=== PATIENT | male | born 1975 | race Caucasian/White ===

== ENCOUNTER 2017-06-02 18:52 | Emergency (ER) | payer SELFPAY ==
[2017-06-02 18:57] VITALS: BP 121/65; PULSE 63; RESP 20; O2SAT 100
[2017-06-02 19:27] VITALS: TEMP 97.9
--- NOTE | 2017-06-02 19:29 | PD ---
HPI Chief Complaint: Injury Time Seen by Provider: 19:20 Travel History International Travel<30 days: No Contact w/Intl Traveler<30days: No Traveled to known affect area: No History of Present Illness HPI 42-year-old [id number] male presents for evaluation of left fourth finger tip amputation. He reports a one hour prior to examination he actually closed the hotel door on his finger. He reports pain, aching, worse with palpation. Last tetanus vaccination one ago. He endorses alcohol use today. No other complaints. PFSH Past Medical History Medical History: Denies Significant Hx Diminished Hearing: No Psychiatric: Yes (BIPOLAR) Past Surgical History Surgical History: No Previous Surgery Social History Alcohol Use: Yes (TODAY) Tobacco Use: No Substance Use: No Allergies-Medications (Allergen,Severity, Reaction): Coded Allergies: codeine (Verified Allergy, Severe, 06/02/17) Reported Meds & Prescriptions Reported Meds & Active Scripts Active Keflex (Cephalexin) 500 Mg Cap 500 Mg PO Q8H Keflex (Cephalexin) 500 Mg Cap 500 Mg PO Q8H 7 Days Zofran (Ondansetron HCl) 4 Mg Tab 4 Mg PO Q6HR PRN Hydrocodone-Acetaminophen 5-325 mg Tab 1 Tab PO Q6H PRN Review of Systems General / Constitutional: No: Fever, Chills Musculoskeletal: Positive: Pain, Other (positive for fingertip amputation) Skin: Positive Other (positive for fingertip amputation, pain) Physical Exam Narrative GENERAL: Well-developed well-nourished male in no acute distress SKIN: Warm and dry. The distal tip of the left fourth finger is amputated just proximal to the nail and distal to the DIP joint. Approximately one centimeter tissue. HEAD: Atraumatic. Normocephalic. EYES: Pupils equal and round. No scleral icterus. No injection or drainage. ENT: No nasal bleeding or discharge. Mucous membranes pink and moist. NECK: Trachea midline. No JVD. CARDIOVASCULAR: Regular rate and rhythm. No murmur appreciated. RESPIRATORY: No accessory muscle use. Clear to auscultation. Breath sounds equal bilaterally. MUSCULOSKELETAL: Skin as noted above. Tender to palpation left distal fourth finger. NEUROLOGICAL: Awake and alert. No obvious cranial nerve deficits. Motor grossly within normal limits. Normal speech. Data Data Last Documented VS Vital Signs Date Time Temp Pulse Resp B/P (MAP) Pulse Ox O2 Delivery O2 Flow Rate FiO2 06/02/17 22:05 06/02/17 21:03 58 18 100 Room Air 06/02/17 19:27 97.9 Orders Orders Finger ([id number]) (06/02/17 ) Cefazolin 2 Gm Premix (Ancef 2 Gm Premix (06/02/17 19:30) Iv Access Insert/Monitor (06/02/17 19:27) Bupivacaine Pf 0.5% Inj (Marcaine Pf 0.5 (06/02/17 20:15) Lidocaine 1% Inj (50 Ml) (Xylocaine 1% I (06/02/17 20:15) Ondansetron Inj (Zofran Inj) (06/02/17 20:30) Sodium Chlor 0.9% 1000 Ml Inj (Ns 1000 M (06/02/17 20:27) Lidocai-Epi 1%-1:100,000 Inj (Xylocaine- (06/02/17 21:15) Lidocai-Epi 1%-1:100,000 Inj (Xylocaine- (06/02/17 21:15) Lidocai-Epi 2%-1:100,000 Inj (Xylocaine- (06/02/17 21:15) Lidocai-Epi 2%-1:100,000 Inj (Xylocaine- (06/02/17 21:15) Consult Hand Surgery (06/02/17 ) Ed Discharge Order (06/02/17 22:03) (Hub Use Only)Inp Phy Cons/Ref (06/02/17 ) MDM Medical Decision Making Medical Screen Exam Complete: Yes Emergency Medical Condition: Yes Medical Record Reviewed: Yes Differential Diagnosis Open fracture, traumatic fingertip amputation, tissue avulsion Narrative Course The patient was given IV Ancef, morphine, IV fluids, Zofran. Finger x-ray was performed. Discussed with on-call hand surgeon Dr. Wells who came and saw the patient and performed rongeuring procedure. The patient will be returning home to [place] and he will follow up with a hand surgeon there. Alternatively if he stays in town he will follow-up with Dr. Wells. He is being discharged with prescriptions for Lortab, Keflex, Zofran. Diagnosis Primary Impression: Traumatic amputation of fingertip Qualified Codes: S68.129A - Partial traumatic metacarpophalangeal amputation of unspecified finger, initial encounter Referrals: Robin Wells MD Additional Instructions: Follow-up at a hand clinic in [place] in the next week. Alternatively, if you are still in the area, follow-up with Dr. Wells, call his office to make an appointment. Medication as prescribed. Do not drive or drink alcohol when taking Lortab. Return for any emergent medical conditions. Med/Other Pt SpecificInfo: Prescription(s) given, Wound Care Scripts Cephalexin (Keflex) 500 Mg Cap 500 MG PO Q8H for Infection, #30 CAP 0 Refills Prov: Leighton Nguyen MD 06/02/17 Cephalexin (Keflex) 500 Mg Cap 500 MG PO Q8H for Infection for 7 Days, #21 CAP 0 Refills Prov: Leighton Nguyen MD 06/02/17 Ondansetron (Zofran) 4 Mg Tab 4 MG PO Q6HR Y for NAUSEA OR VOMITING, #20 TAB 0 Refills Prov: Leighton Nguyen MD 06/02/17 Hydrocodone-Acetaminophen (Hydrocodone-Acetaminophen) 5-325 mg Tab 1 TAB PO Q6H Y for PAIN, #20 TAB 0 Refills Prov: Leighton Nguyen MD 06/02/17 Disposition: 01 DISCHARGE HOME Condition: Stable Harman Cordero Jun 02, 2017 19:29
[2017-06-02] MEDS ORDERED: ceFAZolin 2 GM PREMIX 50 ML IV ONE (19:30)
[2017-06-02 19:58] VITALS: BP 93/50; PULSE 58; RESP 17; O2SAT 97
--- NOTE | 2017-06-02 20:05 | RADRPT ---
EXAM DATE/TIME: 06/02/2017 19:46 [facility] COMPARISON: No previous studies available for comparison. INDICATIONS : Slammed finger in door. MEDICAL HISTORY : None. SURGICAL HISTORY : None. ENCOUNTER: Initial ACUITY: 1 day PAIN SCORE: 10/10 LOCATION: Left 4th Digit. FINDINGS: There is avulsion of the distal fourth finger, predominantly a soft tissue avulsion. There does also appear to be a small avulsion of the terminal tuft. CONCLUSION: 1. Avulsion through the terminal tuft and soft tissues of the fourth finger. Nigel Magaña MD on June 02, 2017 at 20:02 Board Certified Radiologist. This report was verified electronically.
[2017-06-02] MEDS ORDERED: BUPIVACAINE HCL PF 0.5% 10 ML VIAL INFIL ONE (20:15)
[2017-06-02] MEDS ORDERED: LIDOCAINE HCL 1% 50 ML VIAL INFIL ONE (20:15)
[2017-06-02] MEDS ORDERED: SODIUM CHLOR 0.9% 1000 ML INJ 1,000 ML IV SCH (20:27)
[2017-06-02] MEDS ORDERED: ONDANSETRON HCL 4 MG/2 ML VIAL IVP ONE (20:30)
[2017-06-02 21:03] VITALS: BP 124/53; PULSE 58; RESP 18; O2SAT 100
[2017-06-02] MEDS ORDERED: LIDOCAINE 1%/EPINEPHrine 1:100,000 SOLN 20 ML VIAL INFIL ONE ×2 (21:15)
[2017-06-02] MEDS ORDERED: LIDOCAINE 2%/EPINEPHrine 1:100,000 20ML MDV NERV BLOCK ONE (21:15)
[2017-06-02] MEDS ORDERED: LIDOCAINE 2%/EPINEPHrine 1:100,000 30ML MDV INFIL ONE (21:15)
[2017-06-02] MEDS ORDERED: CEPH-460 PO ×2 (22:05→22:27)
[2017-06-02] MEDS ORDERED: ZOFR4TAB PO (22:05)
[2017-06-02] MEDS ORDERED: HYDR-3516 PO (22:05)
--- NOTE | 2017-06-02 22:20 | PD.CONS ---
History of Present Illness Service Hand Surgery Consult Requested By ED Reason for Consult L RF tip amputation Primary Care Physician No Primary Care Physician Diagnoses: (1) Traumatic amputation of fingertip History of Present Illness 42M RHD p/w L RF tip amputation after accidentally closing it in a hotel door. No other injuries. He reports pain limited to tip wound. Last tetanus vaccination one ago. He endorses alcohol use today. No other complaints. Review of Systems ROS Limitations: Intoxication Except as stated in HPI: all other systems reviewed are Neg ROS otherwise noncontributory to presenting complaint Past Family Social History Allergies: Coded Allergies: codeine (Verified Allergy, Severe, 06/02/17) Past Medical History Denies Past Surgical History Denies Reported Medications Denies Active Ordered Medications Denies Family History Noncontributory to presenting complaint Social History +chewing tobacco/EtOH Physical Exam Vital Signs Vital Signs Date Time Temp Pulse Resp B/P (MAP) Pulse Ox O2 Delivery O2 Flow Rate FiO2 06/02/17 21:03 58 18 124/53 (76) 100 Room Air 06/02/17 19:58 58 17 93/50 (64) 97 Room Air 06/02/17 19:27 97.9 06/02/17 18:57 63 20 121/65 (83) 100 Physical Exam GENERAL: This is a well-nourished, well-developed patient, in no apparent distress. SKIN: L finger tip wound HEAD: Atraumatic. Normocephalic. No temporal or scalp tenderness. EYES: Pupils equal round and reactive. Extraocular motions intact. No scleral icterus. No injection or drainage. ENT: Nose without bleeding, Airway patent. NECK: Trachea midline. No JVD or lymphadenopathy. Supple, nontender, no meningeal signs. CARDIOVASCULAR: Regular rate and rhythm without murmurs, gallops, or rubs. RESPIRATORY: Non labored breathing GASTROINTESTINAL: No guarding. MUSCULOSKELETAL: Extremities without clubbing, cyanosis, or edema. No joint tenderness, effusion, or edema noted. No calf tenderness. Negative Homans sign bilaterally. NEUROLOGICAL: Awake and alert. L hand : RF w/ transverse amputation at eponychial fold. +exposed tuft. Sterile matrix avulsed. Roughly 3mm of proximal nail in place under remaining eponychial fold Imaging Xray images personally reviewed c/w RF amputation including most distal tuft. No foreign bodies appreciated Assessment and Plan Problem List: (1) Traumatic amputation of fingertip ICD Codes: S68.129A - Partial traumatic metacarpophalangeal amputation of unspecified finger, initial encounter Status: Acute Assessment and Plan L RF amputation w/ exposed P3 Pt stressing rapid recovery/return to work. Prefers to address injury tonight in ED, which is reasonable. Discussed at length w/ pt risks/benefits/alternatives/informed consent of rongeuring the bone to allow for closure. Pt understands that his nail may or may not grow back, but that if it does it will be deformed and may require further interventions. Pt elects to assume the risks of above procedure Digital block performed. Procedure well tolerated Pt to take keflex x 10 days Pt to keep dressing on until seen by Hand Surgeon in [place], where pt is visiting from. Pt advised of signs/symptoms of infxn Pt to keep L hand clean/dry/ and elevated above heart at all times Pt also given Hand clinic number here in case he stays in town. Problem Qualifiers (1) Traumatic amputation of fingertip: Qualified Codes: S68.129A - Partial traumatic metacarpophalangeal amputation of unspecified finger, initial encounter Robin Fernandes MD Jun 02, 2017 22:20
[2017-06-02 22:34] VITALS: BP 115/56; PULSE 72; RESP 17; O2SAT 99
[2017-06-03] MEDS ORDERED: ACETAMINOPHEN/HYDROcodone 325 MG/5 MG TAB PO ONE (05:00)
[2017-06-03] MEDS ORDERED: ONDANSETRON ODT 4 MG TAB PO ONE (05:00)
== END 2017-06-03 07:39 | disposition home or self-care (01) ==
LOC: NEPD 18:52
DX: S68.125A Partial traumatic metacarpophalangeal amputation of left ring finger, initial encounter (principal); F31.9 Bipolar disorder, unspecified; F17.220 Nicotine dependence, chewing tobacco, uncomplicated; W23.0XXA Caught, crushed, jammed, or pinched between moving objects, initial encounter; Y92.59 Other trade areas as the place of occurrence of the external cause; Z88.5 Allergy status to narcotic agent; Z79.899 Other long term (current) drug therapy
CPT/HCPCS: 73140; 96361; 96365; 96375; 99284; J0690; J2405; J7030